=== PATIENT | male | born 1950 | race Caucasian/White ===

== ENCOUNTER 2017-09-26 11:40 | Outpatient (CLI) | payer MEDICARE, OTHER ==
[~2017-09-26] VITALS: Ht 180.3 cm; Wt 103.0 kg
[2017-09-26 11:56] VITALS: BP 160/92
[2017-09-26] MEDS ORDERED: FUROSEMIDE20 M1 ORAL (15:37)
[2017-09-26] MEDS ORDERED: AMLODIPINE BESY10 MG ORAL (15:37)
[2017-09-26] MEDS ORDERED: FLUOXETINE HCL40 MG ORAL (15:37)
[2017-09-26] MEDS ORDERED: LOPRESSOR25 M1 ORAL (15:37)
[2017-09-26] MEDS ORDERED: SIMVASTATIN40 MG ORAL (15:37)
[2017-09-26] MEDS ORDERED: LISINOPRIL20 MG ORAL (15:37)
[2017-09-26] MEDS ORDERED: IBUPROFEN600 MG ORAL (15:37)
[2017-09-26] MEDS ORDERED: ZANTAC150 MG ORAL (15:37)
--- NOTE | 2017-09-27 09:35 | GI Initial Consult Note ---
Elva Hernándezh Kt N.PAleks 09/27/17 0935: History of Present Illness General Date patient seen: Sep 26, 2017 Time patient seen: 11:00 Referring physician: FANI Reason for Consultation: ABNORMAL CT Present Illness HPI 67 year old male referred by Dr. Buenrostro for abnormal CT findings. Reviewed and noted to have severe distal esophageal wall thickening concerning for esophageal cancer or severe esophagitis. The patient presents today with c/o of GERD and diarrhea. States his last colonoscopy was "long ago." Denies any unintentional weight loss or changes in dietary habits. No signs of abuse or neglect. Patient is not fall risk. Home Meds Reported Medications Metoprolol Tartrate (Metoprolol Tartrate) 25 Mg Tablet, 25 MG ORAL EVERY 12 HOURS, TAB 09/26/17 Ibuprofen* (MOTRIN*) 600 Mg Tablet, 600 MG ORAL BID, #30 TAB 0 Refills 09/26/17 Ranitidine Hcl* (ZANTAC*) 150 Mg Tablet, 150 MG ORAL QHS, #30 TAB 0 Refills 09/26/17 Furosemide* (LASIX*) 20 Mg Tablet, 20 MG ORAL DAILY, TAB 09/26/17 Simvastatin (ZOCOR) 40 Mg Tablet, 40 MG ORAL BEDTIME, TAB 09/26/17 Lisinopril (LISINOPRIL*) 20 Mg Tablet, 20 MG ORAL DAILY, TAB 09/26/17 Amlodipine Besylate* (AMLODIPINE BESYLATE*) 10 Mg Tablet, 10 MG ORAL DAILY, TAB 09/26/17 Fluoxetine Hcl* (FLUOXETINE HCL*) 40 Mg Capsule, 40 MG ORAL DAILY, CAP 09/26/17 Med list reviewed/reconciled: Yes Allergies: Coded Allergies: No Known Allergies (Unverified , 09/26/17) Patient History History Provided By: Patient, Medical Record [facility] Narrative UC in 1959's COPD - emphysema HTN Depression cholesterol GERD Past Surgical History: Rt. Hernia Social History: Reports: smoking - 3/day Review of Systems All Other Systems: negative except mentioned in HPI Physical Exam Vital Signs Date Time Temp Pulse Resp B/P (MAP) Pulse Ox O2 Delivery O2 Flow Rate FiO2 09/26/17 11:56 98.0 87 16 160/92 93 Sp02 EP Interpretation: reviewed, normal General Appearance: well appearing, no apparent distress, alert Head: normocephalic EENT: PERRL/EOMI, normal ENT inspection Neck: supple Respiratory: normal breath sounds, no respiratory distress Cardiovascular: normal rate Gastrointestinal: normal inspection, non tender, soft, normal bowel sounds, non -distended Rectal: deferred Genitourinary: deferred Musculoskeletal: normal inspection, back normal Neurologic: normal inspection, alert, oriented x3, responsive Psychiatric: normal inspection, judgement/insight normal, memory normal Skin: normal inspection, normal color, no rash, warm/dry, palpation normal, well hydrated Lymphatic: normal inspection, no adenopathy GI: Plan Problems: (1) Ulcerative colitis (2) COPD (chronic obstructive pulmonary disease) (3) HTN (hypertension) (4) Depression (5) HLD (hyperlipidemia) (6) GERD (gastroesophageal reflux disease) (7) Hernia Plan EGD/colonoscopy scheduled 10/06/17. - CLD & (Nulytely/Suprep/Movi-Prep) prep instructions given and acknowledged by patient. - NPO @ GA day prior procedure explained. labs to be drawn day of procedure >> CEA Seen with Dr. Castanon. Thank you for this patient referral. ELSA CASTANON 10/02/17 1509: History of Present Illness Present Illness Home Meds Reported Medications Metoprolol Tartrate (Metoprolol Tartrate) 25 Mg Tablet, 25 MG ORAL EVERY 12 HOURS, TAB 09/26/17 Ibuprofen* (MOTRIN*) 600 Mg Tablet, 600 MG ORAL BID, #30 TAB 0 Refills 09/26/17 Ranitidine Hcl* (ZANTAC*) 150 Mg Tablet, 150 MG ORAL QHS, #30 TAB 0 Refills 09/26/17 Furosemide* (LASIX*) 20 Mg Tablet, 20 MG ORAL DAILY, TAB 09/26/17 Simvastatin (ZOCOR) 40 Mg Tablet, 40 MG ORAL BEDTIME, TAB 09/26/17 Lisinopril (LISINOPRIL*) 20 Mg Tablet, 20 MG ORAL DAILY, TAB 09/26/17 Amlodipine Besylate* (AMLODIPINE BESYLATE*) 10 Mg Tablet, 10 MG ORAL DAILY, TAB 09/26/17 Fluoxetine Hcl* (FLUOXETINE HCL*) 40 Mg Capsule, 40 MG ORAL DAILY, CAP 09/26/17 Allergies: Coded Allergies: No Known Allergies (Unverified , 09/26/17) GI: Plan Plan The patient was seen and examined at bedside and all new and available data was reviewed in the patients chart. I agree with the above findings, impression and plan. (Patient seen earlier today. Signature stamp does not reflect patient encounter time.). - MD Betty Mchugh,[facility] Kt N.P. Sep 27, 2017 09:35 ELSA CASTANON Oct 02, 2017 15:09
--- NOTE | 2017-10-06 09:04 | Short Stay Surgery H&P ---
History of Present Illness History of Present Illness Chief Complaint see recent consult note HPI Ryland Sparrow is a 67 year old male who was admitted on for Abdominal Pain Patient History Allergies: Coded Allergies: No Known Allergies (Unverified , 10/06/17) PAST MEDICAL HISTORY: Past Surgeries: Social History: Medication History Scheduled Amlodipine Besylate* (Amlodipine Besylate*), 10 MG ORAL DAILY, (Reported) Fluoxetine Hcl* (Fluoxetine Hcl*), 40 MG ORAL DAILY, (Reported) Furosemide* (Lasix*), 20 MG ORAL DAILY, (Reported) Ibuprofen* (Motrin*), 600 MG ORAL BID, (Reported) Lisinopril (Lisinopril*), 20 MG ORAL DAILY, (Reported) Metoprolol Tartrate (Metoprolol Tartrate), 25 MG ORAL EVERY 12 HOURS, (Reported) Ranitidine Hcl* (Zantac*), 150 MG ORAL QHS, (Reported) Simvastatin (Zocor), 40 MG ORAL BEDTIME, (Reported) Plan Attestation Are the patient's medical conditions optimized for surgery? Attestation Response: yes ELSA CASTANON Oct 06, 2017 09:04
--- NOTE | 2017-10-06 09:04 | Pre-Procedure Note/Attestation ---
Pre-Procedure Note/Attestation Complete Prior to Procedure Planned Procedure: not applicable Procedure Narrative: esophagogastroduodenoscopy and colonoscopy Indications for Procedure Pre-Operative Diagnosis: UC, GERD Attestation I attest that I discussed the nature of the procedure; its benefits; risks and complications; and alternatives (and the risks and benefits of such alternatives ), prior to the procedure, with the patient (or the patient's legal merchandising representative). I attest that, if there was a reasonable possibility of needing a blood transfusion, the patient (or the patient's legal merchandising representative) was given the [facility] standardized written summary, pursuant to the [place] Blood Safety Act ([place] Health and Safety Code # 1645, as amended). I attest that I re-evaluated the patient just prior to the surgery and that there has been no change in the patient's H&P, except as documented below: ELSA CASTANON Oct 06, 2017 09:04
== END 2017-09-26 12:15 | disposition home or self-care (01) ==
LOC: PAN 11:40
DX: K21.9 Gastro-esophageal reflux disease without esophagitis (principal); J44.9 Chronic obstructive pulmonary disease, unspecified; K51.90 Ulcerative colitis, unspecified, without complications; E78.5 Hyperlipidemia, unspecified; F32.9 Major depressive disorder, single episode, unspecified; I10 Essential (primary) hypertension; F17.200 Nicotine dependence, unspecified, uncomplicated; R19.7 Diarrhea, unspecified
CPT/HCPCS: 99201

== ENCOUNTER 2017-10-06 06:39 | Day surgery (SDC) | payer MEDICARE, OTHER ==
[2017-10-06] VITALS (8 sets, daily range): BP systolic 141–163; BP diastolic 73–92
[~2017-10-06] VITALS: Ht 180.3 cm; Wt 98.4 kg
[~2017-10-06 06:39] MED LIST: AMLODIPINE BESY10 MG ORAL; FLUOXETINE HCL40 MG ORAL; FUROSEMIDE20 M1 ORAL; IBUPROFEN600 MG ORAL; LISINOPRIL20 MG ORAL; LOPRESSOR25 M1 ORAL; SIMVASTATIN40 MG ORAL; ZANTAC150 MG ORAL
[2017-10-06] MEDS ORDERED: LR 1000ml 1,000 ML IVLG SCH (06:50)
--- NOTE | 2017-10-06 06:50 | Anethesia Preoperative Eval ---
Anesthesia Pre-op PMH/ROS General Date of Evaluation: Oct 06, 2017 Time of Evaluation: 06:47 Anesthesiologist: daniel ASA Score: ASA 3 Mallampati Score Class I : Soft palate, uvula, fauces, pillars visible Class II: Soft palate, uvula, fauces visible Class III: Soft palate, base of uvula visible Class IV: Only hard plate visible Mallampati Classification: Class II Surgeon: abdi Diagnosis: gerd Surgical Procedure: egd/colonoscopy Social History: current smoker Allergies: Coded Allergies: No Known Allergies (Unverified , 10/06/17) Past Medical History Cardiovascular: Reports: HTN, other - hyperlipidemia Pulmonary: Reports: COPD Gastrointestinal/Genitourinary: Reports: GERD, other - ulcerative coliti Anesthesia Pre-op Phys. Exam Physician Exam Last Vital Signs Date Time Temp Pulse Resp B/P (MAP) Pulse Ox O2 Delivery O2 Flow Rate FiO2 10/06/17 07:32 98.2 67 18 150/87 95 Room Air Constitutional: NAD Neurologic: CN 2-12 intact Cardiovascular: RRR Respiratory: CTA Gastrointestinal: S/NT/ND Airway Exam Mallampati Score: Class II MO: full Neck: supple TMD: 2fb ROM: full Teeth: missing Dentures: upper, lower Anesthesia Pre-op A/P Labs Labs Test 10/06/17 07:38 White Blood Count 8.5 K/UL (4.8-10.8) Red Blood Count 4.80 M/UL (4.70-6.10) Hemoglobin 13.8 G/DL (14.2-18.0) Hematocrit 42.1 % (42.0-52.0) Mean Corpuscular Volume 88 FL (80-99) Mean Corpuscular Hemoglobin 28.8 PG (27.0-31.0) Mean Corpuscular Hemoglobin Concent 32.8 G/DL (32.0-36.0) Red Cell Distribution Width 12.2 % (11.6-14.8) Platelet Count 278 K/UL (150-450) Mean Platelet Volume 7.6 FL (6.5-10.1) Neutrophils (%) (Auto) 70.4 % (45.0-75.0) Lymphocytes (%) (Auto) 18.6 % (20.0-45.0) Monocytes (%) (Auto) 7.1 % (1.0-10.0) Eosinophils (%) (Auto) 2.9 % (0.0-3.0) Basophils (%) (Auto) 1.0 % (0.0-2.0) Studies Pre-op Studies: EKG - nsr Risk Assessment & Plan Assessment: asa3 Plan: mac Status Change Before Surgery: No Pre-Antibiotics Drug: CAROLE Castillo Oct 06, 2017 06:50
[2017-10-06] MEDS ORDERED: fentaNYL 100 mcg/2 mL IV PRN (07:00)
[2017-10-06] MEDS ORDERED: DiphenhydrAMINE 50mg/ml Inj IVP PRN (07:00)
[2017-10-06] MEDS ORDERED: Atropine Inj 1mg/10ml Syr IV PRN (07:00)
[2017-10-06] MEDS ORDERED: Midazolam 2mg/2ml Inj IVP PRN (07:00)
[2017-10-06 08:06] LABS: EOSINOPHILS % (AUTO) 2.9 % (0.0-3.0); HEMATOCRIT 42.1 % (42.0-52.0); HEMOGLOBIN 13.8 G/DL (14.2-18.0); LYMPHOCYTES % (AUTO) 18.6 % (20.0-45.0); MEAN CORPUSCULAR VOLUME 88 FL (80-99); MONOCYTES % (AUTO) 7.1 % (1.0-10.0); NEUTROPHILS % (AUTO) 70.4 % (45.0-75.0); PLATELET COUNT 278 K/UL (150-450); RED CELL DISTRIBUTION WIDTH 12.2 % (11.6-14.8); WHITE BLOOD COUNT 8.5 K/UL (4.8-10.8)
[2017-10-06] MEDS ORDERED: Propofol 200mg/20ml IV ONE (08:45)
[2017-10-06] MEDS ORDERED: Lidocaine 1% MPF 10mg/ml 5ml ONE (08:45)
[2017-10-06 09:30] LABS: ALANINE AMINOTRANSFERASE 13 U/L (12-78); ALBUMIN 3.6 G/DL (3.4-5.0); ALBUMIN/GLOBULIN RATIO 0.9 (1.0-2.7); ALKALINE PHOSPHATASE 84 U/L (46-116); ANION GAP 7 mmol/L (5-15); ASPARTATE AMINO TRANSFERASE 19 U/L (15-37); BILIRUBIN,TOTAL 0.5 MG/DL (0.2-1.0); BLOOD UREA NITROGEN 14 mg/dL (7-18); CALCIUM 8.9 MG/DL (8.5-10.1); CARBON DIOXIDE 28 MMOL/L (21-32); CHLORIDE 106 MMOL/L (98-107); CREATININE 1.2 MG/DL (0.55-1.30); POTASSIUM 4.4 MMOL/L (3.5-5.1); SODIUM 141 MMOL/L (136-145)
--- NOTE | 2017-10-06 09:32 | Endoscopy Procedure Note ---
Endoscopy Procedure Note General Indication for Procedure: GERD, h/o UC Procedures Performed: EGD, colonoscopy Operative Findings/Diagnosis: diverticulosis, one polyp Specimen: yes Pt Tolerated Procedure Well: Yes Estimated Blood Loss: none Anesthesia Anesthesiologist: solis Anesthesia: MAC Inserted Devices Implant(s) used?: No Quality Quality of Bowel Preparation: Excellent Did scope reach the cecum?: Yes Was there any complications?: No GI Core Measures 50 yrs or older w/o bx or poly: No 10yrs. F/U not recommended: Yes If not recommended, why?: Above average risk 10 yrs. F/U needed: Yes 18 years or older w/prev. colo: Yes <3yrs. since last colonoscopy: No ELSA CASTANON Oct 06, 2017 09:32
--- NOTE | 2017-10-06 16:01 | Procedure Note ---
DATE OF PROCEDURE: 10/06/2017 SURGEON: Jay Pena M.D. PROCEDURE: Upper endoscopy with biopsy and colonoscopy with biopsy. ANESTHESIA: Per Dr. Roberto. REFERRING PHYSICIAN: Karel Buenrostro M.D. INSTRUMENT: Olympus adult flexible colonoscope and upper endoscope. INDICATIONS: History of ulcerative colitis, need for screening colonoscopy, history of chronic GERD. The procedure, risks, benefits, and possible consequences, including hemorrhage, aspiration, perforation and infection, and alternative treatments, were explained to the patient/legal guardian by Dr. Jay Pena and the patient/legal guardian understood and accepted these risks. DESCRIPTION OF PROCEDURE: After informed consent was obtained and the patient was adequately sedated, Olympus upper endoscope was advanced from mouth into the second portion of duodenum and retroflexion was performed of the stomach. At the GE junction, there was a little bit of tightness of the GE junction. The patient might have an early achalasia. If patient is symptomatic, we will recommend esophagram. In the stomach, there was diffuse gastritis. Random biopsy from antrum was obtained to rule out H. pylori infection. On the retroflexion, the patient had evidence of medium-sized hiatal hernia. At this time, the upper endoscope was retrieved. The patient was turned over for colonoscopy. Biopsy from distal esophagus was also obtained in this procedure. Colonoscopy, first rectal exam performed, which was positive for external and internal hemorrhoids. Then, the scope was advanced from the rectum into the cecum and subsequently into terminal ileum. Quality of prep was very good. The patient had one polyp that measured roughly about 3 to 4 mm in the transverse colon, removed with the cold biopsy forceps technique in two passages. The patient had also scattered diverticulosis, mostly in the left colon. The patient had some very tiny patches of the inflammation spots, I would say throughout the colon. I am not sure this is from the persistent or remnants of the prior history of colitis. Random biopsies from the ascending colon, transverse colon, and sigmoid colon was obtained. The patient tolerated the procedure well without complication. SUMMARY OF FINDINGS: 1. Little bit of tightness at the GE junction suspicious for achalasia, status post biopsy. 2. Gastritis, status post biopsy. 3. Hiatal hernia. 4. External and internal hemorrhoids. 5. Diverticulosis. 6. One colonic polyp removed. 7. Few spots of maybe inflammation throughout the colon, status post biopsy. RECOMMENDATION: 1. Esophagram if the patient is symptomatic. 2. Follow biopsy results and treat accordingly. I want to thank Dr. Buenrostro for this kind referral. Jay Pena M.D. DR: MARIO JOB#: [id number] CC: Karel Buenrostro M.D.; Fax#: [phone]
--- NOTE | 2017-10-10 16:03 | Cardiology Report ---
APPROVED REPORT EKG Measurement Heart [id number] ID [id number] Normal sinus rhythm Normal ECG
== END 2017-10-06 11:25 | disposition home or self-care (01) ==
LOC: GAS 06:39
DX: Z12.11 Encounter for screening for malignant neoplasm of colon (principal); K21.9 Gastro-esophageal reflux disease without esophagitis; K51.90 Ulcerative colitis, unspecified, without complications; K44.9 Diaphragmatic hernia without obstruction or gangrene; K64.4 Residual hemorrhoidal skin tags; K64.8 Other hemorrhoids; K57.90 Diverticulosis of intestine, part unspecified, without perforation or abscess without bleeding; K63.5 Polyp of colon; K29.50 Unspecified chronic gastritis without bleeding; D12.3 Benign neoplasm of transverse colon
CPT/HCPCS: 36415; 43239; 45380; 80053; 85025; 93005; J2704; 94003; 94150